=== PATIENT | male | born 1990 | race Caucasian/White ===

== ENCOUNTER 2017-02-20 01:23 | Emergency (ER) | payer SELFPAY ==
--- NOTE | 2017-02-20 01:41 | ED Physician Chart ---
ED Chief Complaint/HPI - Patient Information Date Seen:: 02/20/17 Time Seen:: 01:38 Chief Complaint:: Generalized body pain for 3 days History of Present Illness:: 26 yo male developed generalized body pain for 3 days. The patient has liver cirrhosis for 1 year. 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 There is an ulcer at the right planta. The patient requested 2 mg of morphine. Allergies:: Allergies Allergy/AdvReac Type Severity Reaction Status Date / Time acetaminophen [From Tylenol] Allergy Verified 02/20/17 01:26 hydrocodone [From [place]] Allergy Verified 02/20/17 01:27 ibuprofen Allergy Verified 02/20/17 01:27 tramadol Allergy Verified 02/20/17 01:28 Vitals:: Vital Signs - 8 hr 02/20/17 01:25 Temp 96.8 F HR 97 RR 18 BP 136/86 O2 Sat % 96 ED Past Medical History - Past Medical History Past Medical History: DM, Other (liver cirrhosis, ) Social History: Smoker, No Alcohol Family Medical History - Family Member Mother History Unknown: Yes ED Physical Exam - Physical Examination General/Constitutional: Awake, Alert Other Head comments:: twisting of head Other Skin comments:: Right foot ulcer ENMT: Nasal exam nl Neck: Full ROM w/o pain Other Neck comments:: Episodes of spastic involuntary movement of neck and head Respiratory: Clear to Auscultation Cardio Vascular: No murmur, gallop, rubs, NL S1 S2 GI: No tenderness/rebounding/guarding Extremities: normal strength in all extremities Other Neuro/Psych comments:: oriented to self and place, not time ED Assessment - Assessment General Assessment: Diabetic neuropathy Right foot ulcer Critical Care Time: 45 Excludes all billable procedures: Yes This condition life threatening/high prob of deterioration: No Assessment/Comments:: Levofloxacin IV x 1 NS bolus x 2 ED Septic Shock - . Is Septic Shock (SBP<90, OR Lactate>4 mmol\L) present?: No - <6hrs of presentation: Vital Signs: Vital Signs - 8 hr 02/20/17 01:25 Temp 96.8 F HR 97 RR 18 BP 136/86 O2 Sat % 96 ED Reassessment (Disposition) - Reassessment Reassessment Condition:: Improved - Aftercare/Follow up Instructions Aftercare/Follow-Up Instructions:: Counseled pt regarding lab results/diagnosis & need follow up, Refer to Discharge Instructions - Patient Disposition Discharge/Transfer:: Home ED Discharge Plan - Patient Disposition Condition at Disposition: Improved Instructions: Type 2 Diabetes Mellitus, Adult, Diabetes and Foot Care Additional Instructions: FOLLOW UP W/ PMD OR [facility]. COMPLY W/ PRESCRIBED MEDICATION.
[2017-02-20 02:24] LABS: % BASOPHILS 0.8 % (0.0-2.0); % EOSINOPHILS 0.6 % (0.0-5.0); % LYMPHOCYTES 12.1 % (20.0-50.0); % MONOCYTES 7.1 % (2.0-10.0); % NEUTROPHILS 79.4 % (40.0-80.0); HEMATOCRIT 28.9 % (41.0-60); HEMOGLOBIN 9.8 gm/dL (12-16); MEAN CELL VOLUME 88.5 fl (80-99); MEAN CORPUSCULAR HEMOGLOBIN 30.1 pg (26.0-30.0); MEAN CORPUSCULAR HGB CONC 34.1 pg (28.0-36.0); MEAN PLATELET VOLUME 8.1 fl; NEUTROPHILE ABSOLUTE 8.5 Th/cmm (1.8-8.0); PLATELET COUNT 305 Th/cmm (150-400); RED BLOOD COUNT 3.26 Mil/cmm (4.30-5.70); RED CELL DISTRIBUTION WIDTH 14.8 % (11.5-20.0); WHITE BLOOD COUNT 10.8 Th/cmm (4.8-10.8)
[2017-02-20] MEDS ORDERED: Sodium Chloride 0.9% 1,000 ML IV ONE ×2 (02:26→06:00)
[2017-02-20 02:38] LABS: ALB/GLOB RATIO 1.2 (1.0-1.8); ANION GAP 8.3 (7.0-16.0); BILIRUBIN,TOTAL 0.5 mg/dL (0.3-1.0); BUN/CREATININE RATIO 15.6; CALCIUM SERUM 9.6 mg/dL (8.6-10.3); CARBON DIOXIDE 26.5 mEq/L (21.0-31.0); CREATININE - SERUM 1.8 mg/dL (0.7-1.3); POTASSIUM SERUM 4.8 mEq/L (3.5-5.1)
[2017-02-20] MEDS ORDERED: Levofloxacin 500mg/100mL 500 MG/100 ML BAG IV ONE ×2 (06:23→06:34)
== END 2017-02-20 08:15 | disposition home or self-care (01) ==
LOC: ER 01:23
DX: E11.40 Type 2 diabetes mellitus with diabetic neuropathy, unspecified (principal); L97.519 Non-pressure chronic ulcer of other part of right foot with unspecified severity; F17.200 Nicotine dependence, unspecified, uncomplicated
CPT/HCPCS: 99291; 96365; 36415; 85025; 83036; 80053; 87040 ×2; J1956; J7030; Z7502

== ENCOUNTER 2018-01-31 08:56 | Emergency (ER) | payer SELFPAY ==
--- NOTE | 2018-01-31 09:40 | ED Physician Chart ---
ED Chief Complaint/HPI - Patient Information Date Seen:: 01/31/18 Time Seen:: 09:15 Chief Complaint:: nv History of Present Illness:: 27 yr old male homeless on insulin pen syringe non compliant sugar elevated up to 450 here pt noncomplaint with everything and does not want to deal with anything Allergies:: Allergies Allergy/AdvReac Type Severity Reaction Status Date / Time acetaminophen [From Tylenol] Allergy Verified 02/20/17 01:26 hydrocodone [From [place]] Allergy Verified 02/20/17 01:27 ibuprofen Allergy Verified 02/20/17 01:27 ketorolac [From Toradol] Allergy Verified 01/31/18 09:05 tramadol Allergy Verified 02/20/17 01:28 trazodone Allergy Verified 01/31/18 09:06 Vitals:: Vital Signs - 8 hr 01/31/18 09:06 Temp 98.4 F HR 92 RR 17 BP 137/86 O2 Sat % 99 ED Review of Systems - Review of Systems General/Constitutional: No fever, No chills Skin: No skin lesions Head: No headache Eyes: No loss of vision Cardio Vascular: No chest pain Pulmonary: No SOB GI: Nausea, Vomiting Musculoskeletal: No bone or joint pain Endocrine: No polyuria Psychiatric: No depression Hematopoietic: No bruising Allergic/Immuno: No urticaria Neurological: No syncope ED Past Medical History - Past Medical History Past Medical History: DM Family Medical History - Family Member Mother History Unknown: Yes ED Physical Exam - Physical Examination General/Constitutional: Alert Head: Atraumatic Eyes: Lids, conjuctiva normal Skin: No rash ENMT: TM canals nl Neck: Full ROM w/o pain Respiratory: Clear to Auscultation Cardio Vascular: No murmur, gallop, rubs GI: No tenderness/rebounding/guarding : No CVA tenderness Extremities: No tenderness or effusion, Full ROM Neuro/Psych: Alert/oriented ED Labs/Radiology/EKG Results - Lab Results Results: Laboratory Tests 01/31/18 09:03 POC Glucose 459 H* ED Assessment - Assessment General Assessment: iddmnausea elevated bs no vomiting here ED Septic Shock - . Is Septic Shock (SBP<90, OR Lactate>4 mmol\L) present?: No - <6hrs of presentation: Vital Signs: Vital Signs - 8 hr 09/17/18 09:06 Temp 98.4 F HR 92 RR 17 BP 137/86 O2 Sat % 99 ED Reassessment (Disposition) - Reassessment Reassessment:: iddm non compliant with insulin some nausea no vomiting here witnessed novolin 15 units sq and water po poor iv acess and zofran 4 mg sq - Aftercare/Follow up Instructions Aftercare/Follow-Up Instructions:: Counseled pt regarding lab results/diagnosis & need follow up - Patient Disposition Discharge/Transfer:: Home Condition at Disposition:: Stable
[2018-01-31] MEDS ORDERED: INSULIN HUMAN REGULAR 100 UNITS/ML UNIT SUBQ ONE (09:42)
[2018-01-31] MEDS ORDERED: INSULIN HUMAN REGULAR 100 UNITS/ML UNIT ONE (09:46)
[2018-01-31 10:38] LABS: % BASOPHILS 1.6 % (0.0-2.0); % EOSINOPHILS 3.3 % (0.0-5.0); % LYMPHOCYTES 17.9 % (20.0-50.0); % MONOCYTES 5.2 % (2.0-10.0); BASOPHILE ABSOLUTE 0.1 Th/cumm (0-0.2); EOSINOPHILE ABSOLUTE 0.2 Th/cmm (0.1-0.4); HEMATOCRIT 26.5 % (41.0-60); HEMOGLOBIN 8.7 gm/dL (12-16); LYMPHOCYTE ABSOLUTE 1.1 Th/cmm (1.5-3.0); MEAN CELL VOLUME 90.5 fl (80-99); MEAN CORPUSCULAR HEMOGLOBIN 29.6 pg (26.0-30.0); MEAN CORPUSCULAR HGB CONC 32.7 pg (28.0-36.0); MEAN PLATELET VOLUME 7.4 fl; MONOCYTE ABSOLUTE 0.3 Th/cmm (0.3-1.0); NEUTROPHILE ABSOLUTE 4.2 Th/cmm (1.8-8.0); PLATELET COUNT 368 Th/cmm (150-400); RED BLOOD COUNT 2.93 Mil/cmm (4.30-5.70); RED CELL DISTRIBUTION WIDTH 12.1 % (11.5-20.0); WHITE BLOOD COUNT 5.9 Th/cmm (4.8-10.8)
[2018-01-31 10:40] LABS: URINE SOURCE CLEAN C
[2018-01-31 10:43] LABS: URINE BILIRUBIN NEGATIVE (NEGATIVE); URINE BLOOD TRACE (NEGATIVE); URINE GLUCOSE (UA) >=1000 mg/dL (NEGATIVE); URINE KETONE NEGATIVE (NEGATIVE); URINE LEUKOCYTE ESTERASE NEGATIVE (NEGATIVE); URINE MICROSCOPIC INDICATED? YES; URINE NITRATE NEGATIVE (NEGATIVE); URINE PROTEIN >=300 mg/dL (NEGATIVE); URINE UROBILINOGEN 0.2 E.U./dL (0.2 - 1.0)
[2018-01-31 10:53] LABS: ALBUMIN 2.8 gm/dL (4.2-5.5); ANION GAP 9.9 (7.0-16.0); BILIRUBIN,TOTAL 0.2 mg/dL (0.3-1.0); CALCIUM SERUM 8.5 mg/dL (8.6-10.3); GFR AFRICAN-AMERICAN 51.4 ml/min (>90); GFR NON AFRICAN-AMERICAN 42.5 ml/min; POTASSIUM SERUM 3.9 mEq/L (3.5-5.1); TOTAL PROTEIN,SERUM 5.7 gm/dL (6.0-8.3)
[2018-01-31 10:57] LABS: URINE CLARITY CLEAR (CLEAR); URINE COLOR YELLOW
[2018-01-31 11:06] LABS: URINE BACTERIA NONE SEEN /hpf (NONE SEEN); URINE EPITHELIAL CELLS OCCASIONAL /lpf (FEW); URINE RBC 0-2 /hpf (0-5); URINE WBC 0-2 /hpf (0-5)
[2018-01-31 11:15] LABS: AMPHETAMINE URINE POSITIVE (NEGATIVE); BARBITURATES URINE NEGATIVE (NEGATIVE); BENZODIAZEPINES QUAL URINE NEGATIVE (NEGATIVE); CANNABINOID THC NEGATIVE (NEGATIVE); COCAINE METABOLITE QUAL URINE NEGATIVE (NEGATIVE); METHADONE URINE NEGATIVE (NEGATIVE); METHAMPHETAMINES QUAL URINE POSITIVE (NEGATIVE); OPIATES (MORPHINE) QUAL. URINE POSITIVE (NEGATIVE); PHENCYCLIDINE (PCP) URINE NEGATIVE (NEGATIVE); TRICYCLICS (TCA) QUAL. URINE NEGATIVE (NEGATIVE)
== END 2018-01-31 16:45 | disposition home or self-care (01) ==
LOC: ER 08:56
DX: E11.9 Type 2 diabetes mellitus without complications (principal); R11.2 Nausea with vomiting, unspecified; Z88.5 Allergy status to narcotic agent; Z88.6 Allergy status to analgesic agent
CPT/HCPCS: 99284; 96372; 36415; 36416 ×2; 82948 ×2; 80307; 85025; 83036; 80053; 81001; Q0162; J1815; Z7502